=== PATIENT | male | born 1965 | race African-American/Black ===

== ENCOUNTER 2017-07-02 00:30 | Emergency (ER) | payer OTHER ==
[2017-07-02 01:21] VITALS: BP 130/71; PULSE 64; TEMP 97.8; BMI 25.1
[2017-07-02] MEDS ORDERED: FAMOTIDINE 20 MG/50 ML IVPB 50 ML IVPB ONE ×2 (01:28→01:34)
--- NOTE | 2017-07-02 01:29 | PDOC ---
Attending Attestation - Resident Resident Name: Primo Reardon - HPI HPI: 07/02/17 02:14 Pt presents to the ED complaining of diffuse abdominal pain after eating spicy food, similar to previous episodes of GERD. Presented to the ED today because the pain was worse than usual. - Physicial Exam PE: 07/02/17 02:15 Agree with resident's exam. Abdomen is non tender. - Medical Decision Making 07/02/17 02:16 Pt presents to the ED complaining of abdominal pain similar to previous episodes of GERD. Pain is now resolving. Abdomen is non tender. WIll check labs to rule out biliary or pancreatic disease, likely discharge home if negative.
[2017-07-02 01:50] LABS: BASOPHIL 0.5 % (0-2.0); EOSINOPHIL 0.3 % (0-4.5); MCH 29.5 pg (25.7-33.7); MCHC 33.3 g/dl (32.0-35.9); MEAN CELL VOLUME 88.5 fl (80-96); MEAN PLT VOLUME 7.5 fl (7.5-11.1); NEUTROPHILS 82.9 % (42.8-82.8); PLATELET COUNT 171 K/MM3 (134-434); RDW 14.2 % (11.9-15.9); WHITE BLOOD COUNT 12.6 K/mm3 (4.0-10.0)
[2017-07-02 02:16] LABS: ALBUMIN 3.9 g/dl (3.4-5.0); ANION GAP 6 (8-16); BILIRUBIN,TOTAL 0.6 mg/dL (0.2-1.0); CO2 33 mmol/L (21-32); GLUCOSE,RANDOM 127 mg/dL (74-106); SGOT/AST 21 U/L (15-37); SGPT/ALT 35 U/L (12-78); TOT PROT 7.8 g/dl (6.4-8.2)
[2017-07-02 02:17] LABS: ALK PHOS 62 U/L (45-117)
--- NOTE | 2017-07-02 02:47 | PDOC ---
History of Present Illness - General Chief Complaint: Pain Stated Complaint: ABDOMINAL PAIN Time Seen by Provider: 07/02/17 00:58 - History of Present Illness Initial Comments: 07/02/17 03:29 51 yo M with h/o HTN and GERD who presents with abdominal discomfort. Reports that at 2200 ( 07/01) began experiencing crampy diffuse abdominal pain while laying in bed. Pain radiates to flank. Followed by one episode of biliary emesis. Pain has resolved from 07/11 to 02/08 since admission. Believes that symptoms were triggered by ingestion of spicy sausage. Denies fevers/chills, constipation/diarrhea, blood in stool, dysuria, hematuria,urinary complaints, chest pain, SOB, hematemsis. Denies eliciting or aggravating factors. Recently prescribed Omeprazole, but non adherent to medication. Denies h/o abdominal procedures or GI disease. Past History - Past Medical History Allergies/Adverse Reactions: Allergies Allergy/AdvReac Type Severity Reaction Status Date / Time No Known Allergies Allergy Verified 01/04/14 00:11 Home Medications: Ambulatory Orders Lisinopril [Prinivil] 10 mg PO DAILY 01/04/14 HTN: Yes - Immunization History Immunization Up to Date: Yes - Psycho/Social/Smoking Cessation Hx Anxiety: No Suicidal Ideation: No Smoking History: Current some day smoker Have you smoked in the past 12 months: No Number of Cigarettes Smoked Daily: 0 Cigars Per Day: 2 Information on smoking cessation initiated: No 'Breaking Loose' booklet given: 01/04/14 Hx Alcohol Use: No Drug/Substance Use Hx: No Review of Systems - Review of Systems Comments:: 07/02/17 03:39 GENERAL/CONSTITUTIONAL: No fever or chills. No weakness. HEAD, EYES, EARS, NOSE AND THROAT: No change in vision. No ear pain or discharge. No sore throat.- CARDIOVASCULAR: No chest pain or shortness of breath RESPIRATORY: No cough, wheezing, or hemoptysis. GASTROINTESTINAL: + Abdominal discomfort . + nausea, and vomiting. No diarrhea or constipation. GENITOURINARY: No dysuria, frequency, or change in urination. MUSCULOSKELETAL: No joint or muscle swelling or pain. No neck or back pain. SKIN: No rash NEUROLOGIC: No headache, vertigo, loss of consciousness, or change in strength/ sensation. ENDOCRINE: No increased thirst. No abnormal weight change HEMATOLOGIC/LYMPHATIC: No anemia, easy bleeding, or history of blood clots. ALLERGIC/IMMUNOLOGIC: No hives or skin allergy. *Physical Exam - Vital Signs Last Vital Signs Temp Pulse Resp BP Pulse Ox 97.8 F 64 17 130/71 100 07/02/17 01:19 07/02/17 01:19 07/02/17 01:19 07/02/17 01:19 07/02/17 01:19 - Physical Exam Comments: 07/02/17 03:40 GENERAL: Awake, alert, and fully oriented, in no acute distress HEAD: No signs of trauma, normocephalic, atraumatic EYES: PERRLA, EOMI, sclera anicteric, conjunctiva clear ENT: Auricles normal inspection, hearing grossly normal, nares patent, oropharynx clear without exudates. Moist mucosa NECK: Normal ROM, supple, no lymphadenopathy, JVD, or masses LUNGS: No distress, speaks full sentences, clear to auscultation bilaterally HEART: Regular rate and rhythm, normal S1 and S2, no murmurs, rubs or gallops, peripheral pulses normal and equal bilaterally. ABDOMEN: Soft, nontender, normoactive bowel sounds. No guarding, no rebound. No masses EXTREMITIES: Normal inspection, Normal range of motion, no edema. No clubbing or cyanosis. SKIN: Warm, Dry, normal turgor, no rashes or lesions noted. ED Treatment Course - LABORATORY CBC & Chemistry Diagram: 07/02/17 01:43 07/02/17 01:43 - ADDITIONAL ORDERS Additional order review: Laboratory Results 07/02/17 07/02/17 01:45 01:43 Sodium 143 Potassium 4.3 Chloride 104 Carbon Dioxide 33 H Anion Gap 6 L BUN 18 Creatinine 1.0 Creat Clearance w eGFR > 60 Random Glucose 127 H Calcium 9.0 Total Bilirubin 0.6 AST 21 ALT 35 Alkaline Phosphatase 62 Total Protein 7.8 Albumin 3.9 Lipase 140 07/02/17 01:43 RBC 4.79 MCV 88.5 MCHC 33.3 RDW 14.2 MPV 7.5 Neutrophils % 82.9 H Lymphocytes % 11.9 Monocytes % 4.4 Eosinophils % 0.3 Basophils % 0.5 - Medications Given in the ED: ED Medications Discontinued Medications Generic Name Dose Route Start Last Admin Trade Name Freq PRN Reason Stop Dose Admin Famotidine/Sodium Chloride 50 mls @ 100 mls/hr 07/02/17 01:28 07/02/17 01:46 Pepcid 20 Mg Premixed Ivpb - IVPB 07/02/17 01:57 100 mls/hr ONCE ONE Administration Medical Decision Making - Medical Decision Making 07/02/17 03:42 51 yo M with h/o HTN and GERD who presents with abdominal discomfort. Reports that at 2200 ( 07/01) began experiencing crampy diffuse abdominal pain while laying in bed. Pain radiates to flank. Followed by one episode of biliary emesis. Denies associated complaints. Physical exam unremarkable. Symptoms resolved. DDx: Dyspepsia, GERD ED Course: 07/02/17 03:43 CBC CMP Lipase 07/02/17 03:43 Labs unremarkable 07/02/17 03:44 Famotidine 20 mg Pt. tolerating PO feeds with resolution of pain. Stable D/C. 07/02/17 03:45 *DC/Admit/Observation/Transfer Diagnosis at time of Disposition: Dyspepsia GERD (gastroesophageal reflux disease) Qualifiers: Esophagitis presence: without esophagitis Qualified Code(s): K21.9 - Gastro- esophageal reflux disease without esophagitis - Discharge Dispostion Disposition: HOME Condition at time of disposition: Good Admit: No - Patient Instructions Printed Discharge Instructions: Dyspepsia (Alternative Therapy), DI for Dyspepsia Additional Instructions: Please retrun to ED if you experience difficulty swallowing, worsening abdominal pain, fevers/chills, or worsening symptoms. Please continue Omeprazole. - Post Discharge Activity Work/School Note: Back to Work
== END 2017-07-02 03:13 | disposition home or self-care (01) ==
LOC: JER 00:30
PROC: 3E033GC Introduction of Other Therapeutic Substance into Peripheral Vein, Percutaneous Approach (ICD-10-PCS; principal; 2017-07-02)
DX: K21.9 Gastro-esophageal reflux disease without esophagitis (principal); R10.13 Epigastric pain; I10 Essential (primary) hypertension
CPT/HCPCS: 36415; 80053; 83690; 85025; 99281-25

== ENCOUNTER 2018-03-24 22:54 | Emergency (ER) | payer OTHER ==
[2018-03-24 22:59] VITALS: BMI 25.7
--- NOTE | 2018-03-25 01:58 | PDOC ---
History of Present Illness - General Chief Complaint: Pain, Acute Stated Complaint: STOMACH PAIN - History of Present Illness Initial Comments: Patient is a 52 year old male, with a significant past medical history of HTN and GERD, who presents to the emergency department complaining of RLQ pain. Pt states pain began around 9PM today and was similar in nature to abdominal pain on prior ED visit in 07/2017. Pt also endorsing multiple episodes of NBNB vomiting and nausea after onset of pain, as well as intermittent fevers/chills. Pt with no hx of other GI conditions, kidney stones, sick contacts, diet changes or recent travel. Patient denies chest pain, shortness of breath, headache or dizziness. Denies melena, hematochezia, diarrhea and constipation. Denies dysuria, frequency, urgency and hematuria. Allergies: None Past surgical history: None Social History: Current smoker; denies drug use, alcohol PMD: Not on staff 03/25/18 01:57 Past History - Past Medical History Allergies/Adverse Reactions: Allergies Allergy/AdvReac Type Severity Reaction Status Date / Time No Known Allergies Allergy Verified 03/24/18 22:57 Home Medications: Ambulatory Orders Lisinopril [Prinivil] 10 mg PO DAILY 01/04/14 Ibuprofen [Motrin -] 400 mg PO TID #21 tablet 03/25/18 Oxycodone HCl/Acetaminophen [Percocet 5-325 mg Tablet] 1 - 2 tab PO Q6H #20 tablet MDD 4 03/25/18 Oxycodone HCl/Acetaminophen [Percocet 5-325 mg Tablet] 1 tab PO Q4H #20 tablet MDD 4 tabs 03/25/18 Tamsulosin HCl [Flomax] 0.4 mg PO DAILY #7 capsule 03/25/18 levoFLOXacin [Levaquin -] 500 mg PO DAILY #7 tablet 03/25/18 COPD: No HTN: Yes - Immunization History Immunization Up to Date: Yes - Suicide/Smoking/Psychosocial Hx Smoking History: Never smoked Have you smoked in the past 12 months: No Number of Cigarettes Smoked Daily: 0 Cigars Per Day: 2 Information on smoking cessation initiated: No 'Breaking Loose' booklet given: 01/04/14 Hx Alcohol Use: No Drug/Substance Use Hx: No Review of Systems - Review of Systems Comments:: GENERAL/CONSTITUTIONAL: +fever,chills; No weakness. HEAD, EYES, EARS, NOSE AND THROAT: No change in vision. No ear pain or discharge. No sore throat. CARDIOVASCULAR: No chest pain or shortness of breath RESPIRATORY: No cough, wheezing, or hemoptysis. GASTROINTESTINAL: +nausea, vomiting, abdominal pain; no diarrhea or constipation. GENITOURINARY: No dysuria, frequency, or change in urination. MUSCULOSKELETAL: +R flank pain; No joint or muscle swelling or pain. No neck or back pain. SKIN: No rash NEUROLOGIC: No headache, vertigo, loss of consciousness, or change in strength/ sensation. ENDOCRINE: No increased thirst. No abnormal weight change HEMATOLOGIC/LYMPHATIC: No anemia, easy bleeding, or history of blood clots. ALLERGIC/IMMUNOLOGIC: No hives or skin allergy. 03/25/18 01:58 *Physical Exam - Vital Signs Last Vital Signs Temp Pulse Resp BP Pulse Ox 97.5 F L 78 20 175/99 97 03/24/18 22:57 03/24/18 22:57 03/24/18 22:57 03/24/18 22:57 03/24/18 22:57 - Physical Exam Comments: GENERAL: Middle aged man, Awake, alert, and fully oriented, in no acute distress HEAD: No signs of trauma, normocephalic, atraumatic EYES: PERRLA, EOMI, sclera anicteric, conjunctiva clear ENT: Auricles normal inspection, hearing grossly normal, nares patent, oropharynx clear without exudates. Moist mucosa NECK: Normal ROM, supple, no lymphadenopathy, JVD, or masses LUNGS: No distress, speaks full sentences, clear to auscultation bilaterally HEART: Regular rate and rhythm, normal S1 and S2, no murmurs, rubs or gallops, peripheral pulses normal and equal bilaterally. ABDOMEN: TTP in RLQ; Soft, normoactive bowel sounds. No guarding, no rebound. No masses. No CVA tenderness. EXTREMITIES : Normal inspection, Normal range of motion, no edema. No clubbing or cyanosis. NEUROLOGICAL: Cranial nerves II through XII grossly intact. Normal speech, normal gait, no focal sensorimotor deficits SKIN: Warm, Dry, normal turgor, no rashes or lesions noted 03/25/18 01:58 ED Treatment Course - LABORATORY CBC & Chemistry Diagram: 03/25/18 02:57 03/25/18 02:57 Medical Decision Making - Medical Decision Making Patient is a 52 year old male, with a significant past medical history of HTN and GERD, who presents to the emergency department complaining of RLQ pain. DDX includes PUD, kidney stone, UTI, pancreatitis, appendicitis, mesenteric ischemic , viral/bacterial gastroenteritis, constipation, IBS, diverticulitis. Plan: -cbc, cmp, lipase, ua - CT ab/pelvis - Zofran, famotidine 03/25/18 03:06 CT A/P notable for R hydronephrosis, R ureteral stone and perinephric inflammation. Will discharge pt with percocet/motrin for pain control, flomax, levaquin for 7 days. Pt given referral for outpt urology f/u with Dr. Piper , counseled on importance of prompt f/u with urologist. Pt pain better controlled, VSS. *DC/Admit/Observation/Transfer Diagnosis at time of Disposition: Ureteral stone with hydronephrosis - Discharge Dispostion Disposition: HOME Condition at time of disposition: Good Decision to Admit order: No - Prescriptions Prescriptions: Ibuprofen [Motrin -] 400 mg PO TID #21 tablet levoFLOXacin [Levaquin -] 500 mg PO DAILY #7 tablet Oxycodone HCl/Acetaminophen [Percocet 5-325 mg Tablet] 1 tab PO Q4H #20 tablet MDD 4 tabs Oxycodone HCl/Acetaminophen [Percocet 5-325 mg Tablet] 1 - 2 tab PO Q6H #20 tablet MDD 4 Tamsulosin HCl [Flomax] 0.4 mg PO DAILY #7 capsule - Referrals Referrals: ON STAFF,NOT [Primary Care Provider] - Silviano Piper MD [Staff Physician] - 1 week - Patient Instructions Printed Discharge Instructions: Kidney Stones -- Adult, Hydronephrosis -- Adult Additional Instructions: During your visit to the [facility] ED, you were pain in your right flank and lower abdomen. You received hydration, pain control, lab tests and CT scan of your abdomen, which was notable for an obstructing kidney stone in your right ureter. You are being discharged home with outpatient follow-up with your primary care provider and are being provided a referral to see our urologist, Dr. Piper for further evaluation and treatment of your stone. Please take motrin 400mg every four hours if you experience mild pain in your back or abdomen. You are also being provided a prescription for percocet 5- 325mg for moderate to severe pain. Take one pill every four hours as tolerated for pain control. Please drink plenty of fluids to help mobilize your kidney stone as it passes. You are being provided a prescription for levaquin 500mg, an antibiotic to cover for any possible urinary infection. Please take one pill every day for the next seven days. You are also being provided with a prescription for flomax 0.4mg. Please take one pill, once a day by mouth. This medication will help relax your ureter and facilitate the passage of your kidney stone. You are being provided a referral for follow-up with Dr. Piper, our urologist for further evaluation and treatment of your kidney stone. Please call the number provided in this packet to schedule an appointment [facility]. If you experience any of the following symptoms, please return to the ED: - Persistent fevers/chills - Worsening pain in your back, abdomen or groin - Persistent blood or pus in your urine or pain with urination - Any new or concerning symptoms - Post Discharge Activity Forms/Work/School Notes: Back to Work
--- NOTE | 2018-03-25 02:15 | PDOC ---
Attending Attestation - HPI HPI: 03/25/18 03:13 The patient is a 52 year old male with past medical history of hypertension and GERD who presents to the ED with complaints of abdominal pain. He complains of forming RLQ pain that began around 9pm today with associated nausea and non- bloody non-bilious vomiting as well as fevers and chills. He reports a similar episode in the past. Denies any urinary symptoms, cough, SOB, or CP. - Medical Decision Making 03/25/18 03:17 Documentation prepared by Ofelia Steele, acting as nuclear medical tech for Hector Marrero DO. <Ofelia Steele - Last Filed: 03/25/18 03:13> - Resident Resident Name: Austin Leal - ED Attending Attestation I have performed the following: I have examined & evaluated the patient, The case was reviewed & discussed with the resident, I agree w/resident's findings & plan, Exceptions are as noted - Physicial Exam PE: 04/11/18 19:20 Physical Exam General Appearance: Yes: Appropriately Dressed. No: Apparent Distress, Intoxicated HEENT: positive: EOMI, BRYAN, Normal ENT Inspection, Normal Voice, TMs Normal, Pharynx Normal. negative: Pale Conjunctivae, Photophobia, Scleral Icterus (R), Scleral Icterus (L) Neck: positive: Trachea midline, Normal Thyroid, Supple. negative: Tender, Rigid, Carotid bruit, Stridor, Lymphadenopathy (R), Lymphadenopathy (L), Thyromegaly Respiratory/Chest: positive: Lungs Clear, Normal Breath Sounds. negative: Chest Tender, Respiratory Distress, Accessory Muscle Use, Labored Respiration, RES, Crackles, Rales, Rhonchi, Stridor, Wheezing, Dullness Cardiovascular: positive: Regular Rhythm, Regular Rate, S1, S2. negative: Edema , JVD, Murmur, Bradycardia, Tachycardia Vascular Pulses: Dorsalis-Pedis (R): 2+, Doralis-Pedis (L): 2+ Gastrointestinal/Abdominal: positive: Normal Bowel Sounds, Flat, Soft. negative : Tender, Organomegaly, Pulsatile Mass, Increased Bowel Sounds, Decreased BS, Distended, Guarding, Rebound, Hernia, Hepatomegaly, Spleenomegaly Lymphatic: negative: Adenopathy, Tenderness Musculoskeletal: positive: Normal Inspection. negative: CVA Tenderness, Decreased Range of Motion Extremity: positive: Normal Capillary Refill, Normal Inspection, Normal Range of Motion, Pelvis Stable. negative: Tender, Pedal Edema, Swelling, Erythema Integumentary: positive: Normal Color, Dry, Warm. negative: Cyanotic, Erythema , Jaundice, Rash Neurologic: positive: stone sawyer II-XII NML intact, Fully Oriented, Alert, Normal Mood/ Affect, Motor Strength 5/5. negative: EOM Palsy, Facial Droop, Sensory Deficit - Medical Decision Making 04/11/18 19:20 Pt treated and released <Hector Marrero - Last Filed: 04/11/18 19:20>
[2018-03-25] MEDS ORDERED: ONDANSETRON 4 MG/2 ML VIAL IVPUSH ONE (02:29)
[2018-03-25] MEDS ORDERED: ONDANSETRON 4 MG/2 ML VIAL ONE (02:44)
[2018-03-25] MEDS ORDERED: FAMOTIDINE IV 20 MG/12 ML VIAL IVPUSH ONE (02:48)
[2018-03-25] MEDS ORDERED: FAMOTIDINE 20 MG/50 ML IVPB 20 MG/50 ML MG IVPB ONE (03:04)
[2018-03-25 03:05] LABS: BASO % 0.5 % (0-2.0); HEMATOCRIT 42.8 % (35.4-49); HEMOGLOBIN 14.3 GM/dL (11.7-16.9); LYMPH % 6.1 % (8-40); MCH 29.3 pg (25.7-33.7); MCHC 33.4 g/dl (32.0-35.9); MEAN CELL VOLUME 87.7 fl (80-96); MEAN PLT VOLUME 7.4 fl (7.5-11.1); MONO % 2.7 % (3.8-10.2); NEUT % 90.7 % (42.8-82.8); PLATELET COUNT 190 K/MM3 (134-434); RBC 4.89 M/mm3 (4.00-5.60); RDW 13.7 % (11.9-15.9); WHITE BLOOD COUNT 13.7 K/mm3 (4.0-10.0)
[2018-03-25 03:28] LABS: ALBUMIN 3.9 g/dl (3.4-5.0); ANION GAP 7 (8-16); BILIRUBIN,TOTAL 0.5 mg/dL (0.2-1.0); BLOOD UREA NITROGEN 20 mg/dL (7-18); CHLORIDE 104 mmol/L (98-107); CO2 31 mmol/L (21-32); CREATININE 1.1 mg/dL (0.7-1.3); GLUCOSE,RANDOM 170 mg/dL (74-106); LIPASE 136 U/L (73-393); POTASSIUM 3.9 mmol/L (3.5-5.1); SGOT/AST 16 U/L (15-37); SGPT/ALT 32 U/L (12-78); SODIUM 142 mmol/L (136-145); TOT PROT 8.3 g/dl (6.4-8.2)
[2018-03-25 03:29] LABS: ALK PHOS 66 U/L (45-117)
[2018-03-25] MEDS ORDERED: morphine CARPU-JECT 4 MG/1 ML DISP.SYRIN IVPUSH ONE (03:45)
[2018-03-25] MEDS ORDERED: morphine SULFATE 4 MG/ML VIAL ONE (03:52)
[2018-03-25 04:56] LABS: URINE APPEARANCE CLEAR; URINE BILIRUBIN NEGATIVE (<2.0 mg/dL); URINE COLOR YELLOW; URINE GLUCOSE (UA) 2+ (NEGATIVE); URINE KETONE NEGATIVE (NEGATIVE); URINE LEUK ESTERASE TRACE (NEGATIVE); URINE NITRITE NEGATIVE (NEGATIVE); URINE PROTEIN NEGATIVE (NEGATIVE)
[2018-03-25 04:58] LABS: URINE BACTERIA FEW /hpf (NONE SEEN); URINE MUCUS RARE
[2018-03-25 05:27] VITALS: BP 136/78; PULSE 88; TEMP 98
--- NOTE | 2018-03-25 08:56 | PDOC ---
Patient Follow-up (Call Back) - Post ED Follow - Up Condition at time of discharge: Good Disposition at time of original discharge: HOME - Disposition Additional Instructions/Notes: Received call from radiology regarding mass on kidney on CT last night that was not reported in prelim read. I called the pt and spoke with him directly. I informed the pt that there was a 5cm mass on his right kidney and that while we do not know exactly what this represents, it could be cancer. Pt was instructed to follow up with his primary doctor immediately for MRI and possible biopsy. Pt states he has a PMD and will f/u.
== END 2018-03-25 05:28 | disposition home or self-care (01) ==
LOC: JER 22:54
PROC: 3E033GC Introduction of Other Therapeutic Substance into Peripheral Vein, Percutaneous Approach (ICD-10-PCS; principal; 2018-03-24)
PROC: 3E033GC Introduction of Other Therapeutic Substance into Peripheral Vein, Percutaneous Approach (ICD-10-PCS; 2018-03-24)
PROC: 3E033NZ Introduction of Analgesics, Hypnotics, Sedatives into Peripheral Vein, Percutaneous Approach (ICD-10-PCS; 2018-03-24)
DX: N13.2 Hydronephrosis with renal and ureteral calculous obstruction (principal); I10 Essential (primary) hypertension; K21.9 Gastro-esophageal reflux disease without esophagitis
CPT/HCPCS: 36415; 74176-TC; 80053; 81003; 81015; 83690; 85025; 99282-25

== ENCOUNTER 2018-11-29 14:06 | Emergency (ER) | payer OTHER ==
[2018-11-29 14:17] VITALS: BP 166/99; PULSE 76; TEMP 97.9; BMI 25.7
--- NOTE | 2018-11-29 14:53 | PDOC ---
History of Present Illness - General Chief Complaint: Cold Symptoms Stated Complaint: HEADACHE/ABD PAIN Time Seen by Provider: 11/29/18 14:35 History Source: Patient - History of Present Illness Timing/Duration: reports: other Past History - Past Medical History Allergies/Adverse Reactions: Allergies Allergy/AdvReac Type Severity Reaction Status Date / Time No Known Allergies Allergy Verified 11/29/18 14:12 Home Medications: Ambulatory Orders Lisinopril [Prinivil] 10 mg PO DAILY 01/04/14 Acetaminophen [Tylenol -] 1,000 mg PO Q6H #30 tablet 11/29/18 COPD: No HTN: Yes Other medical history: RT KIDNEY REMOVED - Immunization History Immunization Up to Date: Yes - Suicide/Smoking/Psychosocial Hx Smoking History: Never smoked Have you smoked in the past 12 months: No Number of Cigarettes Smoked Daily: 0 Cigars Per Day: 2 'Breaking Loose' booklet given: 01/04/14 Hx Alcohol Use: No Drug/Substance Use Hx: No Review of Systems - Review of Systems Constitutional: No: Chills, Fever, Malaise Respiratory: Yes: Cough. No: Shortness of Breath Cardiac (ROS): No: Chest Pain ABD/GI: Yes: Nausea, Vomiting. No: Constipated, Diarrhea, Rectal Bleeding, Tarry Stools : No: Dysuria *Physical Exam - Vital Signs Last Vital Signs Temp Pulse Resp BP Pulse Ox 97.9 F 76 18 166/99 100 11/29/18 14:12 11/29/18 14:12 11/29/18 14:12 11/29/18 14:12 11/29/18 14:12 - Physical Exam General Appearance: Yes: Appropriately Dressed. No: Apparent Distress HEENT: positive: Normal Voice Neck: positive: Supple Respiratory/Chest: positive: Lungs Clear, Normal Breath Sounds. negative: Respiratory Distress Cardiovascular: positive: Regular Rate, S1, S2 Gastrointestinal/Abdominal: positive: Soft. negative: Tender Musculoskeletal: negative: CVA Tenderness Integumentary: positive: Dry, Warm Neurologic: positive: Fully Oriented, Alert, Normal Mood/Affect Moderate Sedation - Procedure Monitoring Vital Signs: Procedure Monitoring Vital Signs Temperature 97.9 F 11/29/18 14:12 Pulse Rate 76 11/29/18 14:12 Respiratory Rate 18 11/29/18 14:12 Blood Pressure 166/99 11/29/18 14:12 O2 Sat by Pulse Oximetry (%) 100 11/29/18 14:12 ED Treatment Course - LABORATORY CBC & Chemistry Diagram: 11/29/18 15:11 11/29/18 15:11 Medical Decision Making - Medical Decision Making 11/29/18 14:52 53-year-old male, s/p R kidney resection 2/2 to cancer 06/[address] [facility], GERD and hypertension, here with cough, headache and intermittent n/v x 1 week. Also reports vague abdominal pain. No diarrhea, body aches, f/c, neck pain, photophobia, rash, facial pain, rhinorrhea, shortness of breath or chest pain. States with similar sxs at home. No recent travel. Not taking anything for sxs per pt. Patient states he recently received a letter from his doctor stating that the omeprazole he takes daily for his GERD should not be taken long -term 2/2 to potential complications such as low magnesium and cardiac arrhythmias. Patient has since discontinued meds and now concerned that his current symptoms are 2/2 to medication. See exam Possibly viral syndrome Stable and barb well -flu swab -basic labs -supportive tx/reassess 11/29/18 16:53 Labs/flu neg. Pt reports improvement w/ reglan and tylenol. Dc w/ supportive tx and pmd f/u *DC/Admit/Observation/Transfer Diagnosis at time of Disposition: Viral syndrome - Discharge Dispostion Disposition: HOME Condition at time of disposition: Improved - Prescriptions Prescriptions: Acetaminophen [Tylenol -] 1,000 mg PO Q6H #30 tablet - Referrals Referrals: Paul Ruiz [Primary Care Provider] - - Patient Instructions Printed Discharge Instructions: DI for Viral Syndrome Additional Instructions: You likely have a viral illness. Rest, drink pain fluids and take tylenol for pain as needed. Your flu test and labs were normal today. Please follow-up with your PMD as needed - Post Discharge Activity Forms/Work/School Notes: Back to Work
[2018-11-29 15:29] LABS: BASO % 0.7 % (0-2.0); EOS % 1.1 % (0-4.5); HEMATOCRIT 37.1 % (35.4-49); HEMOGLOBIN 12.6 GM/dL (11.7-16.9); LYMPH % 18.2 % (8-40); MCH 29.2 pg (25.7-33.7); MCHC 33.9 g/dl (32.0-35.9); MEAN CELL VOLUME 86.1 fl (80-96); MEAN PLT VOLUME 6.7 fl (7.5-11.1); MONO % 6.4 % (3.8-10.2); NEUT % 73.6 % (42.8-82.8); PLATELET COUNT 179 K/MM3 (134-434); RBC 4.31 M/mm3 (4.00-5.60); RDW 14.4 % (11.9-15.9); WHITE BLOOD COUNT 10.1 K/mm3 (4.0-10.0)
[2018-11-29 15:56] LABS: ALBUMIN 3.7 g/dl (3.4-5.0); ALK PHOS 78 U/L (45-117); ANION GAP 3 MMOL/L (8-16); BILIRUBIN,TOTAL 0.7 mg/dL (0.2-1); BLOOD UREA NITROGEN 21 mg/dL (7-18); CALCIUM 8.6 mg/dL (8.5-10.1); CHLORIDE 104 mmol/L (98-107); CO2 32 mmol/L (21-32); CREATININE 1.2 mg/dL (0.55-1.3); GLUCOSE,RANDOM 113 mg/dL (74-106); POTASSIUM 3.9 mmol/L (3.5-5.1); SGOT/AST 25 U/L (15-37); SGPT/ALT 68 U/L (13-61); SODIUM 139 mmol/L (136-145); TOT PROT 7.9 g/dl (6.4-8.2)
[2018-11-29] MEDS ORDERED: ACETAMINOPHEN 325 MG TABLET (FP) PO ONE (16:10)
[2018-11-29] MEDS ORDERED: METOCLOPRAMIDE HCL INJECTION 10 MG/2 ML VIAL IVPB ONE (16:10)
[2018-11-29] MEDS ORDERED: ACETAMINOPHEN 325 MG TABLET (FP) ONE (16:13)
[2018-11-29] MEDS ORDERED: METOCLOPRAMIDE HCL INJECTION 10 MG/2 ML VIAL ONE (16:13)
[2018-11-29 17:08] LABS: MAGNESIUM 2.1 mg/dL (1.8-2.4)
== END 2018-11-29 16:56 | disposition home or self-care (01) ==
LOC: JERFT 14:06
PROC: 3E033GC Introduction of Other Therapeutic Substance into Peripheral Vein, Percutaneous Approach (ICD-10-PCS; principal; 2018-11-29)
DX: B34.9 Viral infection, unspecified (principal); I10 Essential (primary) hypertension; Z85.528 Personal history of other malignant neoplasm of kidney; Z90.5 Acquired absence of kidney
CPT/HCPCS: 36415; 80053; 83735; 85025; 87804; 99282-25

== ENCOUNTER 2019-02-14 15:24 | Emergency (ER) | payer OTHER ==
[2019-02-14 15:35] VITALS: BP 127/90; PULSE 79; TEMP 98; BMI 28.8
--- NOTE | 2019-02-14 15:35 | PDOC ---
Rapid Medical Evaluation Chief Complaint: Pain, Acute Time Seen by Provider: 02/14/19 15:31 Medical Evaluation: Allergies Allergy/AdvReac Type Severity Reaction Status Date / Time No Known Allergies Allergy Verified 02/14/19 15:31 02/14/19 15:32 53 year old male c/o right flank pain x2 weeks. denies fever/ chills. Pe: Patient alert ox3. A: flank pain P; uA urine culture history of right nephrectomy, renal CA. Discharge Disposition - Diagnosis Flank pain, acute - Referrals - Patient Instructions - Post Discharge Activity
[2019-02-14 16:19] LABS: EPI CELLS 0.1 /HPF (0-5/HPF); URINE APPEARANCE CLEAR; URINE BACTERIA 0.3 /hpf (NEGATIVE); URINE BILIRUBIN NEGATIVE (NEGATIVE); URINE CASTS 1 /lpf (0-8); URINE COLOR YELLOW; URINE GLUCOSE (UA) NEGATIVE (NEGATIVE); URINE KETONE NEGATIVE (NEGATIVE); URINE LEUK ESTERASE NEGATIVE (NEGATIVE); URINE NITRITE NEGATIVE (NEGATIVE); URINE PROTEIN NEGATIVE (NEGATIVE); URINE RBC 2 /hpf (0-4); URINE UROBILINOGEN 0.2 mg/dL (0.2-1.0); URINE WBC 1 /hpf (0-5)
--- NOTE | 2019-02-14 16:26 | PDOC ---
History of Present Illness - General Chief Complaint: Pain, Acute Stated Complaint: ABD. PAIN DUE TO KIDNEY Time Seen by Provider: 02/14/19 15:31 History Source: Patient Exam Limitations: No Limitations Past History - Travel Traveled outside of the country in the last 30 days: No Close contact w/someone who was outside of country & ill: No - Past Medical History Allergies/Adverse Reactions: Allergies Allergy/AdvReac Type Severity Reaction Status Date / Time No Known Allergies Allergy Verified 02/14/19 15:31 Home Medications: Ambulatory Orders Lisinopril [Prinivil] 10 mg PO DAILY 01/04/14 Acetaminophen [Tylenol -] 1,000 mg PO Q6H #30 tablet 11/29/18 Clobetasol Propionate [Temovate] 1 applic TP BID #1 tube 02/14/19 Cancer: Yes (KIDNEY CA) COPD: No HTN: Yes - Immunization History Immunization Up to Date: Yes - Suicide/Smoking/Psychosocial Hx Smoking History: Never smoked Have you smoked in the past 12 months: No Number of Cigarettes Smoked Daily: 0 Cigars Per Day: 2 'Breaking Loose' booklet given: 01/04/14 Hx Alcohol Use: No Drug/Substance Use Hx: No Review of Systems - Review of Systems Able to Perform ROS?: Yes Comments:: 02/14/19 18:26 CONSTITUTIONAL: Absent: fever, chills, diaphoresis, generalized weakness, malaise, loss of appetite HEENT: Absent: rhinorrhea, nasal congestion, throat pain, throat swelling, difficulty swallowing, mouth swelling, ear pain, eye pain, visual Changes CARDIOVASCULAR: Absent: chest pain, loss of consciousness, palpitations, irregular heart rate, peripheral edema RESPIRATORY: Absent: cough, shortness of breath, dyspnea with exertion, orthopnea, wheezing, stridor, hemoptysis GASTROINTESTINAL: Absent: abdominal pain, abdominal distension, nausea, vomiting, diarrhea, constipation, melena, hematochezia GENITOURINARY: Present: R flank pain Absent: dysuria, frequency, urgency, hesitancy, hematuria , flank pain, genital pain MUSCULOSKELETAL: Absent: myalgia, arthralgia, joint swelling SKIN: Absent: rash, itching, pallor HEMATOLOGIC/IMMUNOLOGIC: Absent: easy bleeding, easy bruising, lymphadenopathy, frequent infections ENDOCRINE: Absent: unexplained weight gain, unexplained weight loss, heat intolerance, cold intolerance NEUROLOGIC: Absent: headache, focal weakness or paresthesias, dizziness, unsteady gait, seizure, mental status changes, bladder or bowel incontinence PSYCHIATRIC: Absent: anxiety, depression, suicidal or homicidal ideation, hallucinations. Is the patient limited Bulgarian proficient: No *Physical Exam - Vital Signs Last Vital Signs Temp Pulse Resp BP Pulse Ox 98.0 F 79 18 127/90 100 02/14/19 15:32 02/14/19 15:32 02/14/19 15:32 02/14/19 15:32 02/14/19 15:32 - Physical Exam Comments: 02/14/19 18:27 GENERAL: Well developed, well nourished. Awake and alert. No acute distress. HEENT: Normocephalic, atraumatic. PERRLA, EOMI. No conjunctival pallor. Sclera are non- icteric. Moist mucous membranes. Oropharynx is clear. NECK: Supple. Full ROM. No JVD. Carotid pulses 2+ and symmetric, without bruits. No thyromegaly. No lymphadenopathy. CARDIOVASCULAR: Regular rate and rhythm. No murmurs, rubs, or gallops. Distal pulses are 2+ and symmetric. PULMONARY: No evidence of respiratory distress. Lungs clear to auscultation bilaterally. No wheezing, rales or rhonchi. ABDOMINAL: TTP of the R flank anteriorly, inferior to the 12th rib. Soft. Non-distended. No rebound or guarding. No organomegaly. Normoactive bowel sounds. MUSCULOSKELETAL Normal range of motion at all joints. No bony deformities or tenderness. No CVA tenderness. EXTREMITIES: No cyanosis. No clubbing. No edema. No calf tenderness. SKIN: Warm and dry. Normal capillary refill. No rashes. No jaundice. NEUROLOGICAL: Alert, awake, appropriate. Cranial nerves 2-12 intact. No deficits to light touch and temperature in face, upper extremities and lower extremities. No motor deficits in the in face, upper extremities and lower extremities. Normoreflexic in the upper and lower extremities. Normal speech. Toes are down- going bilaterally. Gait is normal without ataxia. PSYCHIATRIC: Cooperative. Good eye contact. Appropriate mood and affect. ED Treatment Course - LABORATORY CBC & Chemistry Diagram: 02/14/19 16:55 02/14/19 16:55 - RADIOLOGY Radiology Studies Ordered: Category Date Time Status ABDOMEN & PELVIS CT W/O CONTR [CT] Stat CT Scan 02/14/19 16:22 Ordered Medical Decision Making - Medical Decision Making 02/14/19 18:27 The patient is a 53-year-old female with past medical history of renal cancer status post resection of the right kidney (May 2018 (, who presents to the ER today for right sided flank pain for 4 days. Patient states that the pain is sharp and he feels a right below his right ribs. He states that it hurts to take a deep breath. Denies nausea, vomiting, diarrhea, constipation, frequency, urgency, dysuria and hematuria. A/P: Right flank pain/rash On exam patient tender to the right flank without CVA tenderness about the anterior right flank just inferior to the 12th rib. Given history of renal cancer and nephrectomy, will obtain dry CT abdomen Basic labs and urine ordered Pt also with rash similar in appearance to pityrasis rosea. Will send steroid cream to pharmacy. Reevaluate 02/14/19 18:40 CTAP read per radiology: Status post interval right nephrectomy in comparison to CT exam of 03/25/18. A 1.7 x 1.5 cm fluid focuses seen within the right renal fossa which may be postsurgical in nature. Subtle trace of free fluid noted within the right lower pelvis posteriorly. Several punctate nonobstructing left renal calculi seen. No gross recurrent neoplastic disease is seen within the right renal fossa. 02/14/19 18:49 Pt to follow up with his surgeon regarding the flank pain Tylenol as needed DC home with return precautions I discussed the physical exam findings, ancillary test results and final diagnoses with the patient. I answered all of the patient's questions. The patient was satisfied with the care received and felt comfortable with the discharge plan and treatment plan. The Patient agrees to follow up with the primary care physician/specialist within 24-72 hours. Return precautions were given. *DC/Admit/Observation/Transfer Diagnosis at time of Disposition: Flank pain, acute - Discharge Dispostion Disposition: HOME Condition at time of disposition: Stable Decision to Admit order: No - Referrals Referrals: Lon Graves MD [Staff Physician] - - Patient Instructions Printed Discharge Instructions: DI for Flank Pain Additional Instructions: You were evaluated for your flank pain today. Your CT scan did not show a recurrence of your renal cancer. He may take Tylenol 650 mg every 6 hours as needed for pain. Please follow up with her surgeon regarding her pain. Your also evaluated for your rash. Appears to be pityriasis in nature. Please use the steroid cream twice a day to help with her itching. Follow-up with dermatology. A referral was provided. Return to the ER for worsening pain, fever, vomiting, painful urination, or if you have any changes in your symptoms. - Post Discharge Activity Forms/Work/School Notes: Back to Work
[2019-02-14 17:24] LABS: HEMOGLOBIN 13.6 GM/dL (11.7-16.9); LYMPH % 29.5 % (8-40); MCH 29.5 pg (25.7-33.7); MCHC 34.1 g/dl (32.0-35.9); MEAN CELL VOLUME 86.7 fl (80-96); MEAN PLT VOLUME 7.7 fl (7.5-11.1); MONO % 7.1 % (3.8-10.2); NEUT % 59.4 % (42.8-82.8); PLATELET COUNT 183 K/MM3 (134-434); RBC 4.62 M/mm3 (4.00-5.60); RDW 14.1 % (11.9-15.9); WHITE BLOOD COUNT 6.3 K/mm3 (4.0-10.0)
[2019-02-14 17:57] LABS: ALBUMIN 3.8 g/dl (3.4-5.0); ALK PHOS 58 U/L (45-117); ANION GAP 3 MMOL/L (8-16); BILIRUBIN,TOTAL 0.7 mg/dL (0.2-1); BLOOD UREA NITROGEN 19 mg/dL (7-18); CALCIUM 9.2 mg/dL (8.5-10.1); CHLORIDE 106 mmol/L (98-107); CO2 29 mmol/L (21-32); CREATININE 1.3 mg/dL (0.55-1.3); GLUCOSE,RANDOM 102 mg/dL (74-106); SGOT/AST 29 U/L (15-37); SGPT/ALT 43 U/L (13-61); SODIUM 138 mmol/L (136-145); TOT PROT 8.5 g/dl (6.4-8.2)
== END 2019-02-14 19:00 | disposition home or self-care (01) ==
LOC: JER 15:24
DX: R10.9 Unspecified abdominal pain (principal); Z85.528 Personal history of other malignant neoplasm of kidney; Z90.5 Acquired absence of kidney; L30.5 Pityriasis alba
CPT/HCPCS: 36415; 74176-TC; 80053; 81003; 85025; 87086; 99282-25

== ENCOUNTER 2019-05-20 11:26 | Emergency (ER) | payer BC, OTHER ==
[2019-05-20 11:38] VITALS: BP 144/93; PULSE 81; TEMP 98.5; BMI 29.2
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
[2019-05-20] MEDS ORDERED: BACITRACIN 0.9 GM PACKET TP ONE (13:07)
== END 2019-05-20 13:14 | disposition home or self-care (01) ==
LOC: JERFT 11:26 → JER 11:26 → JERFT 13:14
DX: T14.8XXA Other injury of unspecified body region, initial encounter (principal); W22.8XXA Striking against or struck by other objects, initial encounter; Y92.89 Other specified places as the place of occurrence of the external cause; Y93.9 Activity, unspecified; I10 Essential (primary) hypertension; Z85.528 Personal history of other malignant neoplasm of kidney
CPT/HCPCS: 73090-TC-LT-FY; 73130-TC-RT-FY; 99281-25

== ENCOUNTER 2021-06-27 05:42 | Emergency (ER) | payer BC ==
[2021-06-27 06:31] VITALS: BP 156/92; PULSE 70; TEMP 98.4; BMI 25.1
[2021-06-27] MEDS ORDERED: ACETAMINOPHEN 325 MG TABLET (FP) PO ONE ×2 (06:56→08:10)
[2021-06-27] MEDS ORDERED: ACETAMINOPHEN 325 MG TABLET (FP) ONE ×2 (08:07→08:21)
[2021-06-27] MEDS ORDERED: IBUPROFEN 600 MG TABLET (FP) PO ONE (08:10)
[2021-06-27] MEDS ORDERED: CLINDAMYCIN HCL 300 MG CAPSULE PO ONE (09:17)
== END 2021-06-27 09:45 | disposition home or self-care (01) ==
LOC: JER 05:42
DX: K04.7 Periapical abscess without sinus (principal); K08.89 Other specified disorders of teeth and supporting structures; K02.9 Dental caries, unspecified
CPT/HCPCS: 99283-25

== ENCOUNTER 2022-09-24 18:21 | Emergency (ER) | payer BC ==
[2022-09-24 18:42] VITALS: BP 146/80; PULSE 90; RESP 18; TEMP 97.8; BMI 25.1
== END 2022-09-24 22:02 | disposition short-term general hospital (02) ==
LOC: JERFT 18:21
DX: S02.40DA Maxillary fracture, left side, initial encounter for closed fracture (principal); S02.85XA Fracture of orbit, unspecified, initial encounter for closed fracture; S02.40FA Zygomatic fracture, left side, initial encounter for closed fracture
CPT/HCPCS: 70486-TC; 99284-25

== ENCOUNTER 2023-11-16 10:06 | Observation (INO) | payer BC ==
[2023-11-16 10:27] VITALS: BMI 24.4
[2023-11-16] MEDS ORDERED: ACETAMINOPHEN 500 MG TABLET (FP) PO ONE (11:06)
[2023-11-16] MEDS ORDERED: KETOROLAC TROMETHAMINE 30 MG/1 ML VIAL IM ONE (11:18)
[2023-11-16] MEDS ORDERED: ACETAMINOPHEN 500 MG TABLET (FP) ONE (11:24)
[2023-11-16 12:10] LABS: EOS % 1.5 % (0-4.5); HEMATOCRIT 42.6 % (35.4-49); HEMOGLOBIN 14.1 GM/dL (11.7-16.9); LYMPH % 28.9 % (8-40); MCH 30.2 pg (25.7-33.7); MCHC 33.1 g/dl (32.0-35.9); MEAN CELL VOLUME 91.2 fl (80-96); MEAN PLT VOLUME 7.8 fl (7.5-11.1); MONO % 8.7 % (3.8-10.2); NEUT % 59.9 % (42.8-82.8); PLATELET COUNT 136 10^3/uL (134-434); RBC 4.67 M/mm3 (4.00-5.60); RDW 14.4 % (11.9-15.9); WHITE BLOOD COUNT 8.1 K/mm3 (4.0-10.0)
[2023-11-16 12:31] LABS: INR 1.17 (0.83-1.09); PROTHROMBIN TIME (PATIENT) 13.5 SEC (9.7-13.0)
[2023-11-16 12:32] LABS: ACTIVATED PTT 39.7 SECONDS (25.2-36.5)
[2023-11-16 12:35] LABS: POTASSIUM 3.9 mmol/L (3.5-5.1)
[2023-11-16 12:39] LABS: CALCIUM 9.6 mg/dL (8.5-10.1)
[2023-11-16 12:40] LABS: ALBUMIN 3.7 g/dl (3.4-5.0); BLOOD UREA NITROGEN 17.5 mg/dL (7-18); MAGNESIUM 1.9 mg/dL (1.8-2.4)
[2023-11-16 12:44] LABS: CREATININE 1.1 mg/dL (0.55-1.3)
[2023-11-16 12:46] LABS: BILIRUBIN,TOTAL 1.7 mg/dL (0.2-1); TOT PROT 8.1 g/dl (6.4-8.2)
[2023-11-16 15:10] LABS: BILIRUBIN,DIRECT 0.4 mg/dL (0.0-0.2)
[2023-11-16] MEDS ORDERED: ACETAMINOPHEN 500 MG TABLET (FP) PO PRN (15:46)
[2023-11-16] MEDS ORDERED: ASPIRIN 81 MG CHEWABLE TABLETS ONE (16:48)
[2023-11-16] MEDS: ASPIRIN 81 MG CHEWABLE TABLETS PO SCH (16:52)
[2023-11-16] MEDS ORDERED: LABETALOL HCL 5 MG/1 ML (100MG/20 ML VIAL) IVPUSH ONE (21:19)
[2023-11-16] MEDS ORDERED: ATORVASTATIN CA 40 MG TABLET (FP) ONE (21:21)
[2023-11-16] MEDS ORDERED: LEVALBUTEROL HCL 0.31 MG/3 ML VIAL.NEB IH ONE ×2 (21:37→21:43)
[2023-11-16] MEDS ORDERED: ACETAMINOPHEN 325 MG TABLET (FP) ONE (21:43)
[2023-11-16] MEDS: ACETAMINOPHEN 325 MG TABLET (FP) PO PRN (22:00)
[2023-11-16] MEDS ORDERED: ATORVASTATIN CA 20 MG TABLET (FP) PO SCH (22:00)
[2023-11-17 06:56] LABS: BASO % 0.9 % (0-2.0); EOS % 1.7 % (0-4.5); HEMATOCRIT 43.7 % (35.4-49); HEMOGLOBIN 14.3 GM/dL (11.7-16.9); LYMPH % 30.5 % (8-40); MCH 29.9 pg (25.7-33.7); MCHC 32.7 g/dl (32.0-35.9); MEAN CELL VOLUME 91.4 fl (80-96); MEAN PLT VOLUME 8.4 fl (7.5-11.1); MONO % 6.6 % (3.8-10.2); NEUT % 60.3 % (42.8-82.8); PLATELET COUNT 131 10^3/uL (134-434); RBC 4.78 M/mm3 (4.00-5.60); RDW 14.1 % (11.9-15.9); WHITE BLOOD COUNT 6.9 K/mm3 (4.0-10.0)
[2023-11-17 07:03] LABS: POTASSIUM 4.3 mmol/L (3.5-5.1)
[2023-11-17 07:06] LABS: ALBUMIN 3.5 g/dl (3.4-5.0); BLOOD UREA NITROGEN 17.9 mg/dL (7-18); CALCIUM 8.9 mg/dL (8.5-10.1); MAGNESIUM 1.7 mg/dL (1.8-2.4)
[2023-11-17 07:09] LABS: PHOSPHOROUS 2.9 mg/dL (2.5-4.9)
[2023-11-17 07:11] LABS: BILIRUBIN,TOTAL 2.3 mg/dL (0.2-1); TOT PROT 7.7 g/dl (6.4-8.2)
[2023-11-17] MEDS ORDERED: MAGNESIUM SULF 50% (8.12 MEQ/2 ML-1 GM VIAL) IVPB ONE (07:41)
[2023-11-17] MEDS ORDERED: MAGNESIUM 1GM/D5W - 1 GM/100 ML IVPB IVPB ONE (07:54)
[2023-11-17] MEDS: ALBUTEROL SO4 2.5/IPRATROPIUM 0.5 INH SOL 3 ML VIAL.NEB. NEB PRN ×2 (08:02→14:00)
[2023-11-17] MEDS ORDERED: ASPIRIN COATED 81 MG TABLET.EC ONE (08:20)
[2023-11-17] MEDS ORDERED: ENOXAPARIN NA (PORCINE) 40 MG/0.4 ML DISP.SYRIN SQ ONE (08:21)
[2023-11-17] MEDS ORDERED: LISINOPRIL 10 MG TABLET ONE (08:21)
[2023-11-17] MEDS ORDERED: ACETAMINOPHEN 325 MG TABLET (FP) ONE (08:22)
[2023-11-17] MEDS: ENOXAPARIN NA (PORCINE) 40 MG/0.4 ML DISP.SYRIN SQ SCH (09:00)
[2023-11-17] MEDS: ASPIRIN 81 MG CHEWABLE TABLETS PO SCH (09:00)
[2023-11-17] MEDS: LISINOPRIL 10 MG TABLET PO SCH (09:00)
[2023-11-17] MEDS ORDERED: LISINOPRIL 20 MG TABLET PO SCH (10:00)
[2023-11-17] MEDS ORDERED: ALBUTEROL SO4 2.5/IPRATROPIUM 0.5 INH SOL 3 ML VIAL.NEB. NEB ONE (13:57)
[2023-11-17 17:11] LABS: COCAINE, UR NEGATIVE (NEGATIVE); METHADONE, UR NEGATIVE (NEGATIVE); OPIATES, URI NEGATIVE (NEGATIVE)
[2023-11-17 17:12] LABS: PHENCYCLIDINE,URINE NEGATIVE (NEGATIVE); URINE BENZODIAZEPINES NEGATIVE (NEGATIVE)
[2023-11-17 17:16] LABS: URINE AMPHETAMINES NEGATIVE (NEGATIVE); URINE BARBITURATES NEGATIVE (NEGATIVE)
[2023-11-17] MEDS: ACETAMINOPHEN 325 MG TABLET (FP) PO PRN (21:55)
[2023-11-17] MEDS ORDERED: ATORVASTATIN CA 40 MG TABLET (FP) PO SCH (22:00)
[2023-11-18 05:53] VITALS: PULSE 90
[2023-11-18] MEDS ORDERED: NIFEdipine E.R. 30 MG TABLET PO ONE (09:14)
[2023-11-18] MEDS: ASPIRIN 81 MG CHEWABLE TABLETS PO SCH (09:34)
[2023-11-18 10:25] VITALS: BP 151/105; RESP 16; TEMP 98.3
[2023-11-18] MEDS: LISINOPRIL 10 MG TABLET PO SCH (10:26)
[2023-11-18] MEDS: ENOXAPARIN NA (PORCINE) 40 MG/0.4 ML DISP.SYRIN SQ SCH (10:26)
== END 2023-11-18 10:31 | disposition short-term general hospital (02) ==
LOC: JER 10:06 → JERBED 13:48 → J4S 11-17 19:45
PROVIDERS: ADMIT Internal Medicine; ATTEND Nurse Practitioner Family
PROC: 3E033GC Introduction of Other Therapeutic Substance into Peripheral Vein, Percutaneous Approach (ICD-10-PCS; principal; 2023-11-16)
PROC: 3E0F7SF Introduction of Other Gas into Respiratory Tract, Via Natural or Artificial Opening (ICD-10-PCS; 2023-11-16)
DX: R07.89 Other chest pain (principal); I20.89 Other forms of angina pectoris; E80.7 Disorder of bilirubin metabolism, unspecified; I10 Essential (primary) hypertension; E78.5 Hyperlipidemia, unspecified; Z85.528 Personal history of other malignant neoplasm of kidney; K21.9 Gastro-esophageal reflux disease without esophagitis; F12.90 Cannabis use, unspecified, uncomplicated; K86.89 Other specified diseases of pancreas; K59.00 Constipation, unspecified; R63.4 Abnormal weight loss; Z90.5 Acquired absence of kidney
CPT/HCPCS: 36415; 71046-TC-FY; 78452-TC; 80053; 80061; 80307; 82248; 83036; 83735; 84100; 84484; 85025; 85610; 85730; 87635; 93005; 93010; 93017; 93306-TC; 94644; 96374; 99285-25; A9502; G0378